=== PATIENT | female | born 2000 | race Caucasian/White ===

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

== ENCOUNTER 2022-01-12 18:21 | Inpatient (IN) ==
[2022-01-11 20:46] LABS: Bacteria,Urine Few per hpf (None-Few); Bilirubin,Urine Negative (Negative); Blood,Urine Negative (Negative); Clarity,Urine Turbid (Clear); Color,Urine Light-Yellow (Yellow); Glucose,Urine (UA) Normal (Normal); Ketones,Urine 10 mg/dL (Negative); Leukocyte Esterase,Urine Large (Negative); Mucus,Urine Few per lpf (None-Few); Nitrite,Urine Negative (Negative); PH,Urine 6.5 pH Units (5.0-8.0); Protein,Urine Negative (Neg-Trace); RBC,Urine 0-3 per hpf (0-3); Specific Gravity,Urine 1.015 (1.010-1.025); Squamous Epithelial Cell,Urine Moderate per hpf (None-Few); Urobilinogen,Urine Normal (Normal)
[2022-01-11 22:56] LABS: Candida DNA DETECTED (Not Detect); Gardnerella DNA DETECTED (Not Detect); Trichomonas DNA Not Detected (Not Detect)
[2022-01-11] MEDS: Betamethasone Acet/SodPhos 30 MG/5 ML VIAL IM SCH (23:16)
[2022-01-12 00:25] LABS: Basophils % 0.2 %; Eosinophils # 0.1 K/mcL (0.0-0.6); Hematocrit 33.5 % (35.3-44.9); Immature Granulocytes % 0.4 % (0-4); Lymphocytes # 1.7 K/mcL (0.6-4.6); Lymphocytes % 16.8 %; Mean Corpuscular HGB Conc 32.8 g/dL (31.6-35.5); Mean Corpuscular Hemoglobin 30.5 pg (28.0-33.3); Mean Corpuscular Volume 92.8 fL (83.0-100.0); Mean Platelet Volume 10.9 fL (9.4-12.4); Monocytes # 0.6 K/mcL (0.0-1.3); Monocytes % 5.5 %; Neutrophils # 7.7 K/mcL (1.6-8.9); Platelet Count 202 K/mcL (140-400); Red Blood Count 3.61 M/mcL (3.82-4.97); Red Cell Distribution Width 12.6 % (11.5-14.5); Segmented Neutrophils % 76.1 %; White Blood Count 10.2 K/mcL (4.3-11.1)
[2022-01-12] MEDS: Penicillin G Potassium 2,500,000 UNIT/105 ML MLS IVPB SCH ×5 (03:51→20:05)
[2022-01-12] MEDS: metroNIDAZOLE 500 MG TABLET PO SCH ×2 (10:18→23:29)
[2022-01-12] MEDS: NIFEdipine Immed Rel 10 MG CAPSULE PO SCH ×3 (14:28→20:47)
[~2022-01-12 18:21] MED LIST changes: +*HR* Nalbuphine 10 MG/ML AMPUL IV ONE; +*HR* Nalbuphine 10 MG/ML AMPUL IV PRN; +Azithromycin 500 MG in 0.9 % Sodium Chloride 250 ML IVPB PRN; -Betamethasone Acet/SodPhos 6 MG/ML MDV IM SCH; -Calcium Gluconate 1,000 MG/10 ML VIAL IVPB ONE; +Famotidine 20 MG/2 ML VIAL IVP PRN; +Fluconazole 150 MG TABLET PO ONE; -Indomethacin 25 MG CAPSULE PO ONE; +Lidocaine 1% 20 ML MDV INFILT PRN; -Magnesium Sulfate 20 gm/500mL 20 GM/500 ML IV.SOLN IVC SCH; +Metoclopramide 10 MG/2 ML VIAL IVP PRN; +NIFEdipine Immed Rel 10 MG CAPSULE PO ONE; +Naloxone 0.4 MG/ML INJ IVP PRN; +Ondansetron 4 MG/2 ML VIAL IVP PRN; +Oxytocin 30 UNIT/503 ML BAG IVC SCH; +Penicillin G Potassium 5,000,000 UNIT in 0.9 % Sodium Chloride Mini Bag 100 ML IVPB ONE; +Ringers Solution, Lactated 1,000 ML IVC ONE; +Ringers Solution, Lactated 1,000 ML IVC SCH; +metroNIDAZOLE 500 MG TABLET PO SCH
[2022-01-12 19:01] LABS: Amphetamine Screen,Urine Negative ng/mL (Cutoff=1000); Barbiturate Screen,Urine Negative ng/mL (Cutoff=200); Benzodiazepines Screen,Urine Negative ng/mL (Cutoff=200); Cannabinoid Screen,Urine Negative ng/mL (Cutoff = 50); Cocaine Screen,Urine Negative ng/mL (Cutoff= 300); Opiate Screen,Urine Negative ng/mL (Cutoff=300); Phencyclidine Screen,Urine Negative ng/mL (Cutoff=25)
[2022-01-12] MEDS: Betamethasone Acet/SodPhos 30 MG/5 ML VIAL IM SCH (23:29)
[2022-01-13] MEDS: Penicillin G Potassium 2,500,000 UNIT/105 ML MLS IVPB SCH ×2 (00:09→04:07)
[2022-01-13] MEDS: NIFEdipine Immed Rel 10 MG CAPSULE PO SCH ×2 (02:53→08:49)
[2022-01-13] MEDS: metroNIDAZOLE 500 MG TABLET PO SCH (08:48)
== END 2022-01-13 09:15 | disposition home or self-care (01) | DRG 833 ==
LOC: 1NENULAB
PROVIDERS: ADMIT Registered Nurse; ATTEND Registered Nurse

== ENCOUNTER → 2022-01-23 17:31 | Observation (INO) ==
[2022-01-23 12:52] LABS: Bilirubin,Urine Negative (Negative); Blood,Urine Negative (Negative); Clarity,Urine Clear (Clear); Color,Urine Light-Yellow (Yellow); Glucose,Urine (UA) Normal (Normal); Ketones,Urine Negative (Negative); Leukocyte Esterase,Urine Negative (Negative); Nitrite,Urine Negative (Negative); Protein,Urine Negative (Neg-Trace); Specific Gravity,Urine 1.013 (1.010-1.025); Urobilinogen,Urine Normal (Normal)
[~2022-01-23 17:31] MED LIST changes: -*HR* Nalbuphine 10 MG/ML AMPUL IV ONE; -Azithromycin 500 MG in 0.9 % Sodium Chloride 250 ML IVPB PRN; -Famotidine 20 MG/2 ML VIAL IVP PRN; -Fluconazole 150 MG TABLET PO ONE; -Lidocaine 1% 20 ML MDV INFILT PRN; -Metoclopramide 10 MG/2 ML VIAL IVP PRN; -NIFEdipine Immed Rel 10 MG CAPSULE PO ONE; +NIFEdipine Immed Rel 10 MG CAPSULE PO SCH; -Naloxone 0.4 MG/ML INJ IVP PRN; -Ondansetron 4 MG/2 ML VIAL IVP PRN; -Oxytocin 30 UNIT/503 ML BAG IVC SCH; -Penicillin G Potassium 5,000,000 UNIT in 0.9 % Sodium Chloride Mini Bag 100 ML IVPB ONE; -Ringers Solution, Lactated 1,000 ML IVC ONE; -Ringers Solution, Lactated 1,000 ML ONE; -metroNIDAZOLE 500 MG TABLET PO SCH
== END | disposition home or self-care (01) ==
LOC: 1NENULAB
PROVIDERS: ADMIT Advanced Practice Midwife; ATTEND Advanced Practice Midwife

== ENCOUNTER → 2022-02-13 01:22 | Observation (INO) ==
[~2022-02-13 01:22] MED LIST changes: -*HR* Nalbuphine 10 MG/ML AMPUL IV PRN; -NIFEdipine Immed Rel 10 MG CAPSULE PO SCH; -Ringers Solution, Lactated 1,000 ML IVC SCH; +hydrOXYzine pamoate 25 MG CAPSULE PO PRN
== END | disposition home or self-care (01) ==
LOC: 1NENULAB
PROVIDERS: ADMIT Registered Nurse; ATTEND Registered Nurse

== ENCOUNTER 2022-02-16 09:00 | Inpatient (IN) ==
[~2022-02-16 09:00] MED LIST changes: +Famotidine 20 MG/2 ML VIAL IVP PRN; +Lidocaine 1% 20 ML MDV INFILT PRN; +Metoclopramide 10 MG/2 ML VIAL IVP PRN; +Naloxone 0.4 MG/ML INJ IVP PRN; +Ondansetron 4 MG/2 ML VIAL IVP PRN; +Penicillin G Potassium 5,000,000 UNIT in 0.9 % Sodium Chloride Mini Bag 100 ML IVPB ONE; +Ringers Solution, Lactated 1,000 ML IVC SCH; +Ringers Solution, Lactated 1,000 ML ONE; -hydrOXYzine pamoate 25 MG CAPSULE PO PRN
[2022-02-16 09:08] LABS: Basophils % 0.2 %; Eosinophils # 0.1 K/mcL (0.0-0.6); Eosinophils % 0.5 %; Hematocrit 33.3 % (35.3-44.9); Hemoglobin 11.1 g/dL (11.5-15.4); Immature Granulocytes % 0.4 % (0-4); Lymphocytes % 14.7 %; Mean Corpuscular HGB Conc 33.3 g/dL (31.6-35.5); Mean Corpuscular Hemoglobin 30.2 pg (28.0-33.3); Mean Corpuscular Volume 90.7 fL (83.0-100.0); Mean Platelet Volume 11.6 fL (9.4-12.4); Monocytes % 7.3 %; Neutrophils # 10.5 K/mcL (1.6-8.9); Platelet Count 252 K/mcL (140-400); Red Blood Count 3.67 M/mcL (3.82-4.97); Red Cell Distribution Width 14.2 % (11.5-14.5); Segmented Neutrophils % 76.9 %; White Blood Count 13.6 K/mcL (4.3-11.1)
[2022-02-16] MEDS ORDERED: Ropivacaine/PF 0.2% 20 ML VIAL EP ONE (09:09)
[2022-02-16] MEDS ORDERED: *HR* FentaNYL (PF) 100 MCG/2 ML VIAL EP ONE (09:09)
[2022-02-16] MEDS ORDERED: EPHEDrine 50 MG/ML VIAL IVP PRN (09:09)
[2022-02-16] MEDS ORDERED: Bupivacaine-MPF 0.25% 10 ML VIAL ONE (09:12)
[2022-02-16] MEDS ORDERED: Epidural Premix (fent/bupiv) 110 ML EP SCH (09:15)
[2022-02-16 11:56] LABS: Amphetamine Screen,Urine Negative ng/mL (Cutoff=1000); Barbiturate Screen,Urine Negative ng/mL (Cutoff=200); Benzodiazepines Screen,Urine Negative ng/mL (Cutoff=200); Cannabinoid Screen,Urine Negative ng/mL (Cutoff = 50); Cocaine Screen,Urine Negative ng/mL (Cutoff= 300); Opiate Screen,Urine Negative ng/mL (Cutoff=300); Phencyclidine Screen,Urine Negative ng/mL (Cutoff=25)
[2022-02-16] MEDS ORDERED: Penicillin G Potassium 2,500,000 UNIT/105 ML MLS IVPB SCH (13:00)
[2022-02-16] MEDS ORDERED: Oxytocin 30 UNIT/503 ML BAG IVC ONE (13:30)
[2022-02-16] MEDS ORDERED: OXYTOCIN/RINGERS LACTATE 10 UNIT/166.6 ML BAG IVC ONE ×2 (14:03→16:58)
[2022-02-16] MEDS ORDERED: Lanolin 7 G OINT...G. TP PRN ×2 (14:03→16:58)
[2022-02-16] MEDS ORDERED: Rho Immune Globulin 1,500 UNIT SYRINGE IM PRN (14:03)
[2022-02-16] MEDS ORDERED: Measles/Mumps/Rubella Vacc 0.5 ML VIAL SQ PRN ×2 (14:03→16:58)
[2022-02-16] MEDS ORDERED: Ondansetron ODT 4 MG TAB.RAPDIS SL PRN ×2 (14:03→16:58)
[2022-02-16] MEDS ORDERED: Benzocaine/Menthol 56 GM AEROSOL SPRAY TP PRN ×2 (14:03→16:58)
[2022-02-16] MEDS ORDERED: Oxytocin 30 UNIT/503 ML BAG IVC SCH ×2 (14:15→16:58)
[2022-02-16] MEDS ORDERED: Acetaminophen 325 MG TABLET PO SCH (14:15)
[2022-02-16] MEDS ORDERED: Ondansetron 4 MG/2 ML VIAL IVP PRN (16:58)
[2022-02-16] MEDS ORDERED: Ibuprofen 600 MG TABLET PO SCH (17:03)
[2022-02-16] MEDS: Ibuprofen 600 MG TABLET PO SCH (23:48)
[2022-02-16] MEDS: Acetaminophen 325 MG TABLET PO SCH (23:49)
[2022-02-17 07:19] VITALS: BP 123/74; PULSE 74; TEMP 98.6; O2SAT 98
[2022-02-17] MEDS ORDERED: Prenatal Vit/FA 1 EACH TABLET PO SCH (09:00)
[2022-02-17] MEDS: Acetaminophen 325 MG TABLET PO SCH (10:07)
[2022-02-17] MEDS: Ibuprofen 600 MG TABLET PO SCH (11:47)
[2022-02-17] MEDS ORDERED: Rho Immune Globulin 1,500 UNIT SYRINGE IM ONE (11:54)
== END 2022-02-17 14:00 | disposition home or self-care (01) | DRG 807 ==
LOC: 1NENULAB → 1NENUOBS 16:30
PROVIDERS: ADMIT Advanced Practice Midwife; ATTEND Advanced Practice Midwife